=== PATIENT | male | born 1930 | race Caucasian/White ===

== ENCOUNTER 2016-11-26 22:43 | Inpatient (IN) | payer OTHER, MEDICARE ==
[~2016-11-26] VITALS: Ht 177.8 cm; Wt 106.3 kg
[2016-11-26 23:15] LABS: HEMATOCRIT 40.4 % (38.0-50.0); MCH 30.3 PG (29.0-34.0); MCHC 32.7 G/DL (30.0-36.0); MCV 92.7 FL (86-99); MEAN PLAT.VOLUME 10.4 uM^3 (9.0-12.4); PLATELET COUNT 266 K/uL (156-360); RBC DIS.WIDTH-SD 43.6 % (39-53); RED BLOOD COUNT 4.36 M/uL (4.00-5.50); WHITE BLOOD COUNT 13.5 K/uL (4.1-10.2)
[2016-11-26 23:24] LABS: CHLORIDE 105 mEq/L (99-109); POTASSIUM 4.8 mEq/L (3.7-5.4); SODIUM 140 mEq/L (136-147)
[2016-11-26 23:25] LABS: GLUCOSE 132 mg/dL (70-99)
[2016-11-26 23:27] LABS: ANION GAP 11 MEQ/L (2-14)
[2016-11-26 23:30] LABS: UREA NITROGEN (BUN) 26 mg/dL (9-23)
[2016-11-26 23:33] LABS: GFR ESTIMATE (CALCULATED) 44 mL/min/
[2016-11-27] VITALS (7 sets, daily range): BP systolic 106–126; BP diastolic 57–77
[2016-11-27 00:55] LABS: CARBON DIOXIDE (BICARBONATE) 31.5 MEQ/L (20-31)
[2016-11-27 01:27] LABS: INTER. NORMALIZED RATIO 2.8; PROTHROMBIN TIME 29.3 (9.2-11.2); PTT 42.7 (25-32)
[2016-11-27 01:30] LABS: TOTAL BILIRUBIN 0.9 mg/dL (0.0-1.0)
[2016-11-27 01:31] LABS: ALKALINE PHOSPHATASE 76 IU/L (3-129)
[2016-11-27 01:34] LABS: DIRECT BILIRUBIN 0.4 mg/dL (0.0-0.3)
[2016-11-27 01:35] LABS: CREATINE KINASE 256 IU/L (1-294); LIPASE 70 U/L (1.0-51.0)
[2016-11-27 01:37] LABS: TROP-I INTERPRETATION NEGATIVE; TROPONIN-I 0.03 ng/mL (0.0-0.30)
[2016-11-27] MEDS ORDERED: CEPHALEXIN500 MG PO (01:44)
[2016-11-27] MEDS ORDERED: WARFARIN SODIUM5 MG PO (01:45)
[2016-11-27] MEDS ORDERED: ATENOLOL25 MG PO (01:46)
[2016-11-27] MEDS ORDERED: COUMADIN5 MG PO (01:46)
[2016-11-27] MEDS ORDERED: LOSARTAN POTAS100 MG PO (01:47)
[2016-11-27] MEDS ORDERED: DILTIAZEM 24HR120 M2 PO (01:47)
[2016-11-27] MEDS ORDERED: LO-DOSE ASPIRIN81 M2 PO (01:48)
[2016-11-27] MEDS ORDERED: ATORVASTATIN CA80 MG PO (01:48)
[2016-11-27] MEDS ORDERED: CENTRUM SILVER1 EAC3 PO (01:48)
[2016-11-27] MEDS ORDERED: TURMERIC500 MG PO (01:49)
[2016-11-27 09:31] LABS: HEMATOCRIT 38.5 % (38.0-50.0); MCH 30.5 PG (29.0-34.0); MCHC 32.2 G/DL (30.0-36.0); MCV 94.8 FL (86-99); MEAN PLAT.VOLUME 10.6 uM^3 (9.0-12.4); PLATELET COUNT 244 K/uL (156-360); RBC DIS.WIDTH-CV 13.1 % (11.8-14.6); RBC DIS.WIDTH-SD 45.3 % (39-53); RED BLOOD COUNT 4.06 M/uL (4.00-5.50)
[2016-11-27 09:32] LABS: WHITE BLOOD COUNT 9.2 K/uL (4.1-10.2)
[2016-11-27 09:38] LABS: ANION GAP 11 MEQ/L (2-14); CHLORIDE 102 MEQ/L (99-109); GFR ESTIMATE (CALCULATED) 47 mL/min/; GLUCOSE 112 mg/dL (70-99); POTASSIUM 4.3 MEQ/L (3.7-5.4); SAMPLE HEMOLYSIS CHECK 0; SAMPLE ICTERIC CHECK 0; SAMPLE LIPEMIA CHECK 0; SODIUM 139 MEQ/L (136-147); UREA NITROGEN (BUN) 24 mg/dL (9-23)
[2016-11-28 04:25] VITALS: BP 160/83
[2016-11-28 05:16] LABS: MCH 30.5 PG (29.0-34.0); MCHC 31.8 G/DL (30.0-36.0); MCV 95.8 FL (86-99); MEAN PLAT.VOLUME 10.6 uM^3 (9.0-12.4); PLATELET COUNT 234 K/uL (156-360); RBC DIS.WIDTH-CV 13.1 % (11.8-14.6); RBC DIS.WIDTH-SD 46.5 % (39-53); RED BLOOD COUNT 4.07 M/uL (4.00-5.50); WHITE BLOOD COUNT 8.8 K/uL (4.1-10.2)
[2016-11-28 05:51] LABS: ANION GAP 8 MEQ/L (2-14); CHLORIDE 105 MEQ/L (99-109); GFR ESTIMATE (CALCULATED) 41 mL/min/; GLUCOSE 143 mg/dL (70-99); POTASSIUM 5.9 MEQ/L (3.7-5.4); SAMPLE HEMOLYSIS CHECK 0; SAMPLE ICTERIC CHECK 0; SAMPLE LIPEMIA CHECK 0; SODIUM 141 MEQ/L (136-147); UREA NITROGEN (BUN) 26 mg/dL (9-23)
[2016-11-28 07:19] LABS: INTER. NORMALIZED RATIO 3.8; PROTHROMBIN TIME 39.9 (9.2-11.2)
[2016-11-28 08:00] VITALS: BP 149/61
[2016-11-28 08:10] LABS: INFLUENZA A VIRAL ANTIGEN NEGATIVE; INFLUENZA B VIRAL ANTIGEN NEGATIVE
[2016-11-28 09:25] LABS: D-DIMER ELISA 0.77 mg/L FEU (< 0.57)
[2016-11-28 11:07] VITALS: BP 118/76
[2016-11-28 16:06] VITALS: BP 134/68
[2016-11-28 20:17] VITALS: BP 133/78
[2016-11-29 00:09] VITALS: BP 115/58
[2016-11-29 05:45] VITALS: BP 135/63
[2016-11-29 06:42] LABS: PROTHROMBIN TIME 48.8 (9.2-11.2)
[2016-11-29 07:02] LABS: INTER. NORMALIZED RATIO 4.6
[2016-11-29 08:39] VITALS: BP 133/71
[2016-11-29 08:43] LABS: MCHC 32.5 G/DL (30.0-36.0); MCV 95.5 FL (86-99); PLATELET COUNT 239 K/uL (156-360); RBC DIS.WIDTH-CV 13.2 % (11.8-14.6); RBC DIS.WIDTH-SD 46.8 % (39-53); RED BLOOD COUNT 3.77 M/uL (4.00-5.50)
[2016-11-29 08:44] LABS: WHITE BLOOD COUNT 12.2 K/uL (4.1-10.2)
[2016-11-29 08:47] LABS: ANION GAP 9 MEQ/L (2-14); CHLORIDE 106 MEQ/L (99-109); GFR ESTIMATE (CALCULATED) 32 mL/min/; GLUCOSE 106 mg/dL (70-99); POTASSIUM 4.5 MEQ/L (3.7-5.4); SAMPLE HEMOLYSIS CHECK 0; SAMPLE ICTERIC CHECK 0; SAMPLE LIPEMIA CHECK 0; SODIUM 139 MEQ/L (136-147); UREA NITROGEN (BUN) 37 mg/dL (9-23)
[2016-11-29] MEDS ORDERED: CEFTIN500 MG PO (11:26)
[2016-11-29] MEDS ORDERED: PREDNISONE20 MG PO ×2 (11:26→12:25)
[2016-11-29 13:00] VITALS: BP 130/73
[2016-11-29] MEDS ORDERED: SPIRIVA RESPIMAT4 GM IH (13:09)
[2016-11-29 13:33] LABS: ADD MIUA? NO; BILIRUBIN NEGATIVE; BLOOD NEGATIVE; COLOR YELLOW ((YELLOW)); GLUCOSE (STRIP) NEGATIVE; KETONES NEGATIVE; LEUKOCYTES NEGATIVE; NITRITE NEGATIVE; PROTEIN (STRIP) NEGATIVE; SPECIFIC GRAVITY 1.015 (1.000-1.030); UROBILINOGEN 0.2 MG/DL (0.2-1.0)
[2016-11-29 13:55] LABS: UR CREATININE CONCENTRATION 136.3 MG/DL
[2016-11-29 14:04] LABS: ANION GAP 7 MEQ/L (2-14); CHLORIDE 103 MEQ/L (99-109); GFR ESTIMATE (CALCULATED) 36 mL/min/; GLUCOSE 186 mg/dL (70-99); POTASSIUM 4.9 MEQ/L (3.7-5.4); SAMPLE HEMOLYSIS CHECK 0; SAMPLE ICTERIC CHECK 0; SAMPLE LIPEMIA CHECK 0; SODIUM 136 MEQ/L (136-147); UREA NITROGEN (BUN) 38 mg/dL (9-23)
[2016-11-29 17:00] VITALS: BP 136/78
[2016-11-29] MEDS ORDERED: AMLODIPINE BESYL5 MG PO (17:20)
== END 2016-11-29 18:08 | disposition home or self-care (01) | DRG 190 ==
LOC: EME 22:43 → 4EAST 11-27 02:11 → EDOF 11-27 02:11 → 4EAST 11-27 03:02
PROVIDERS: Emergency Medicine; Internal Medicine; Physician Assistant; Student in an Organized Health Care Education/Training Program
DX: J44.0 Chronic obstructive pulmonary disease with (acute) lower respiratory infection (principal); J18.9 Pneumonia, unspecified organism; J20.9 Acute bronchitis, unspecified; J44.1 Chronic obstructive pulmonary disease with (acute) exacerbation; N17.9 Acute kidney failure, unspecified; I12.9 Hypertensive chronic kidney disease with stage 1 through stage 4 chronic kidney disease, or unspecified chronic kidney disease; N18.9 Chronic kidney disease, unspecified; I48.2 Chronic atrial fibrillation; E78.5 Hyperlipidemia, unspecified; I25.10 Atherosclerotic heart disease of native coronary artery without angina pectoris; I71.4 Abdominal aortic aneurysm, without rupture; J45.909 Unspecified asthma, uncomplicated; E66.9 Obesity, unspecified; R79.1 Abnormal coagulation profile; T45.515A Adverse effect of anticoagulants, initial encounter; Z95.1 Presence of aortocoronary bypass graft; Z79.82 Long term (current) use of aspirin; Z87.891 Personal history of nicotine dependence; Z79.01 Long term (current) use of anticoagulants; Z68.33 Body mass index [BMI] 33.0-33.9, adult
CPT/HCPCS: 71020; 71250; 76770; 78582; 80048; 80048 91; 80076; 81003; 82436; 82550; 82570; 82803; 83605; 83690; 83880; 84132 91; 84156; 84300; 84484; 84540; 85027; 85379; 85610; 85730; 87040; 87502; 93005; 94640; 94640 76; 99281; 99285; A9540; A9567; J0696; J7030; J7050; J7512

== ENCOUNTER 2017-03-13 09:18 | Observation (INO) | payer OTHER, MEDICARE ==
[~2017-03-13] VITALS: Ht 177.8 cm; Wt 103.7 kg
[~2017-03-13 09:18] MED LIST: AMLODIPINE BESYL5 MG PO; ATENOLOL25 MG PO; ATORVASTATIN CA80 MG PO; CEFTIN500 MG PO; CENTRUM SILVER1 EAC3 PO; CEPHALEXIN500 MG PO; COUMADIN5 MG PO; DILTIAZEM 24HR120 M2 PO; LO-DOSE ASPIRIN81 M2 PO; LOSARTAN POTAS100 MG PO; PREDNISONE20 MG PO; SPIRIVA RESPIMAT4 GM IH; TURMERIC500 MG PO; WARFARIN SODIUM5 MG PO
[2017-03-13] MEDS ORDERED: LOSARTAN POTASS50 MG PO (09:41)
[2017-03-13 10:32] LABS: HEMATOCRIT 41.3 % (38.0-50.0); MCH 30.2 PG (29.0-34.0); MCHC 32.4 G/DL (30.0-36.0); MEAN PLAT.VOLUME 10.3 uM^3 (9.0-12.4); PLATELET COUNT 183 K/uL (156-360); RBC DIS.WIDTH-CV 12.5 % (11.8-14.6); RBC DIS.WIDTH-SD 43.1 % (39-53); RED BLOOD COUNT 4.44 M/uL (4.00-5.50); WHITE BLOOD COUNT 10.6 K/uL (4.1-10.2)
[2017-03-13 10:46] LABS: CHLORIDE 103 mEq/L (99-109); POTASSIUM 4.9 mEq/L (3.7-5.4); SODIUM 137 mEq/L (136-147)
[2017-03-13 10:48] LABS: GLUCOSE 141 mg/dL (70-99)
[2017-03-13 10:49] LABS: ANION GAP 8 MEQ/L (2-14)
[2017-03-13 10:50] LABS: TOTAL BILIRUBIN 1.1 mg/dL (0.0-1.0)
[2017-03-13 10:51] LABS: ALKALINE PHOSPHATASE 73 IU/L (3-129)
[2017-03-13 10:52] LABS: GFR ESTIMATE (CALCULATED) 51 mL/min/; TROP-I INTERPRETATION NEGATIVE; TROPONIN-I 0.01 ng/mL (0.0-0.30)
[2017-03-13 10:53] LABS: UREA NITROGEN (BUN) 19 mg/dL (9-23)
[2017-03-13] MEDS ORDERED: VENTOLIN HFA18 GM IH (13:48)
[2017-03-13 14:52] LABS: INTER. NORMALIZED RATIO 2.4; PROTHROMBIN TIME 27.6 SEC (10.2-12.9)
[2017-03-13 16:20] VITALS: BP 145/75
[2017-03-13 19:09] LABS: TROP-I INTERPRETATION NEGATIVE; TROPONIN-I 0.01 ng/mL (0.0-0.30)
[2017-03-13 21:17] VITALS: BP 128/72
[2017-03-14 00:13] VITALS: BP 143/71
[2017-03-14 02:42] LABS: TROP-I INTERPRETATION NEGATIVE; TROPONIN-I < 0.01 ng/mL (0.0-0.30)
[2017-03-14 03:43] VITALS: BP 105/54
[2017-03-14 06:05] LABS: PROTHROMBIN TIME 22.5 SEC (10.2-12.9)
[2017-03-14 06:13] LABS: ANION GAP 9 MEQ/L (2-14); CHLORIDE 105 MEQ/L (99-109); GFR ESTIMATE (CALCULATED) 47 mL/min/; GLUCOSE 156 mg/dL (70-99); POTASSIUM 4.8 MEQ/L (3.7-5.4); SAMPLE HEMOLYSIS CHECK 0; SAMPLE ICTERIC CHECK 0; SAMPLE LIPEMIA CHECK 0; SODIUM 139 MEQ/L (136-147); UREA NITROGEN (BUN) 24 mg/dL (9-23)
[2017-03-14 07:08] VITALS: BP 138/82
[2017-03-14] MEDS ORDERED: DILTIAZEM 24HR120 M2 PO (08:13)
== END 2017-03-14 10:39 | disposition home or self-care (01) ==
LOC: EME 09:18 → EDOF 13:56 → ENRESERV 13:59 → 5WEST 16:14
PROVIDERS: Emergency Medicine; Internal Medicine
DX: R06.02 Shortness of breath (principal); R09.02 Hypoxemia; I12.9 Hypertensive chronic kidney disease with stage 1 through stage 4 chronic kidney disease, or unspecified chronic kidney disease; N18.3 Chronic kidney disease, stage 3 (moderate); N17.9 Acute kidney failure, unspecified; I48.91 Unspecified atrial fibrillation; Z79.01 Long term (current) use of anticoagulants; I25.10 Atherosclerotic heart disease of native coronary artery without angina pectoris; Z95.1 Presence of aortocoronary bypass graft; M79.89 Other specified soft tissue disorders; E78.5 Hyperlipidemia, unspecified; F41.9 Anxiety disorder, unspecified; Z87.891 Personal history of nicotine dependence; I71.4 Abdominal aortic aneurysm, without rupture; Z79.82 Long term (current) use of aspirin
CPT/HCPCS: 71260; 80048; 80053; 83605; 83880; 84484; 85027; 85610; 93005; 93306; 94640; 94664; 94799; 99202; 99281; 99285; G0378; J1940; J7030; J7512